=== PATIENT | female | born 2005 | race Two or more races ===

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

== ENCOUNTER → 2024-12-02 | Outpatient (REF) | payer OTHER | LOC: M PLALAB 14:14 | PROVIDERS: ATTEND Advanced Practice Midwife | DX: Z34.01 Encounter for supervision of normal first pregnancy, first trimester (principal) ==

== ENCOUNTER → 2024-12-15 | Outpatient (CLI) | payer OTHER ==
[2024-12-15 13:38] LABS: PLATELET COUNT, AUTOMATED 203 10^3/uL (150-450)
[2024-12-15 14:07] LABS: HIV 1&2 SCREEN NEGATIVE (NEGATIVE)
[2024-12-15 14:15] LABS: HEPATITIS C VIRUS ABY INDEX < 0.02 INDEX (<0.8)
[2024-12-15 14:38] LABS: Trichomonas vaginalis (AMP) NOT DETECTED (NEGATIVE)
[2024-12-15 15:02] LABS: GC DNA AMPLIFICATION NEGATIVE (NEGATIVE)
== END ==
LOC: M PLALAB 11:05
PROVIDERS: ATTEND Advanced Practice Midwife
DX: Z34.01 Encounter for supervision of normal first pregnancy, first trimester (principal)

== ENCOUNTER → 2025-02-17 | Outpatient (CLI) | payer OTHER | LOC: M RAD 10:45 | PROVIDERS: ATTEND Obstetrics & Gynecology | DX: Z34.80 Encounter for supervision of other normal pregnancy, unspecified trimester (principal) ==

== ENCOUNTER → 2025-03-24 | Outpatient (CLI) | payer OTHER | LOC: M WHC 09:14 | PROVIDERS: ATTEND Obstetrics & Gynecology | DX: Z34.82 Encounter for supervision of other normal pregnancy, second trimester (principal); Z3A.26 26 weeks gestation of pregnancy ==

== ENCOUNTER 2025-03-28 10:00 | Emergency (ER) | payer OTHER ==
[~2025-03-28] VITALS: Ht 157.5 cm; Wt 63.2 kg
[2025-03-28 10:11] VITALS: BP 133/86; TEMP 98.4; O2SAT 99
[2025-03-28] MEDS ORDERED: PRENTAB9 PO (11:13)
== END 2025-03-28 10:54 | disposition admitted as inpatient to this hospital (09) ==
LOC: EDBD 10:00 → M ED 10:00
DX: Z53.21 Procedure and treatment not carried out due to patient leaving prior to being seen by health care provider (principal)

== ENCOUNTER 2025-03-28 10:54 | Outpatient (CLI) | payer OTHER ==
[~2025-03-28] VITALS: Ht 157.5 cm; Wt 62.4 kg
[2025-03-28 11:12] VITALS: BP 118/85
[2025-03-28] MEDS ORDERED: PRENTAB9 PO (11:13)
[2025-03-28] MEDS ORDERED: HOME MED LIST COMPLETE! XX SCH (11:15)
[2025-03-28 11:31] VITALS: BP 114/77
[2025-03-28 11:45] VITALS: BP 108/70
[2025-03-28] MEDS: ACETAMINOPHEN 500 MG TAB PO ONE (12:23)
[2025-03-28 13:20] LABS: PLATELET COUNT, AUTOMATED 176 10^3/uL (150-450)
== END 2025-03-28 14:37 | disposition home or self-care (01) ==
LOC: M LDO 10:54
PROVIDERS: ATTEND Obstetrics & Gynecology
DX: Z04.1 Encounter for examination and observation following transport accident (principal); Z3A.26 26 weeks gestation of pregnancy; Z03.79 Encounter for other suspected maternal and fetal conditions ruled out
CPT/HCPCS: 36415; 59025; 76816; 85027; 85384; 85460; G0463

== ENCOUNTER → 2025-03-30 | Outpatient (CLI) | payer OTHER ==
[~2025-03-30] MED LIST: PRENTAB9 PO
[2025-03-30 15:35] LABS: PLATELET COUNT, AUTOMATED 189 10^3/uL (150-450)
[2025-03-30 15:39] LABS: GLUCOSE CHALLENGE TEST 1 HOUR 141 MG/DL (LESS THAN 140)
[2025-03-30 16:08] LABS: HIV 1&2 SCREEN NEGATIVE (NEGATIVE)
[2025-03-30 16:15] LABS: HEPATITIS C VIRUS ABY INDEX < 0.02 INDEX (<0.8)
[2025-03-30 16:54] LABS: Trichomonas vaginalis (AMP) NOT DETECTED (NEGATIVE)
[2025-03-30 17:17] LABS: GC DNA AMPLIFICATION NEGATIVE (NEGATIVE)
== END ==
LOC: M PLALAB 12:16
PROVIDERS: ATTEND Obstetrics & Gynecology
DX: Z36.89 Encounter for other specified antenatal screening (principal); Z3A.26 26 weeks gestation of pregnancy
CPT/HCPCS: 36415; 82950; 85027; 86780; 86803; 86850; 86900; 86901; 87389; 87661; 87810; 87850; J2790